=== PATIENT | female | born 1970 | race African-American/Black ===

== ENCOUNTER 2016-08-07 15:52 | Emergency (ER) | payer BC ==
[2016-08-07] MEDS ORDERED: NALOXONE HCL INJ/PF 0.4 MG/1 ML SDV ONE (16:08)
[2016-08-07] MEDS ORDERED: MIDAZOLAM 2 MG/2 ML INJ ONE (16:08)
[2016-08-07] MEDS ORDERED: FLUMAZENIL INJ 0.5 MG/5 ML VIAL IV ONE (16:09)
[2016-08-07] MEDS ORDERED: FENTANYL CITRATE INJ/PF 100 MCG/2 ML AMPUL ONE (16:09)
[2016-08-07] MEDS ORDERED: EPINEPHRINE INJ 1 MG/10 ML DISP.SYRIN ONE (16:09)
[2016-08-07] MEDS ORDERED: GLUCAGON,HUMAN RECOMB 1 MG INJ ONE (16:09)
--- NOTE | 2016-08-07 17:47 | ER Document Report ---
ED Foreign Body - General Chief Complaint: Foreign Body Stated Complaint: FOREIGN BODY IN THROAT Time seen by provider: 16:45 Mode of Arrival: Ambulatory Information source: Patient Notes: Patient states she is eating a sausage biscuit at around noon time when part of it was stuck in her throat. She came into the emergency room to have an EGD done by Dr. Hidalgo to remove the food. - HPI Location of foreign body: Other - Unable to swallow food due to a full fluid bolus in her throat Onset: Other - Around noon time Onset/Duration: Sudden, Persistent Quality of pain: No pain Severity: None Pain Level: Denies Associated symptoms: Other - Difficult to swallow Exacerbated by: Food Relieved by: Denies Similar symptoms previously: Yes Recently seen / treated by doctor: Yes - Related Data Allergies/Adverse Reactions: Penicillins Allergy (Severe, Verified 07/19/11 08:49) Past Medical History - General Information source: Patient - Social History Smoking Status: Never Smoker Cigarette use (# per day): No Chew tobacco use (# tins/day): No Smoking Education Provided: No Frequency of alcohol use: None Drug Abuse: None Occupation: [employer] Lives with: Family Family History: CAD, Hyperlipidemia, Hypertension, Malignancy, Other - CHF Patient has suicidal ideation: No Patient has homicidal ideation: No - Past Medical History Cardiac Medical History: Reports: None Pulmonary Medical History: Reports: None EENT Medical History: Reports: None Neurological Medical History: Reports: Hx Seizures - last one 1987 Endocrine Medical History: Reports: None Renal/ Medical History: Reports: None Malignancy Medical History: Reports: None GI Medical History: Reports: Hx Colonoscopy, Hx Endoscopy, Other - 68 oh strictures multiple fluid boluses Musculoskeltal Medical History: Reports None Skin Medical History: Reports None Psychiatric Medical History: Reports: None Traumatic Medical History: Reports: None Infectious Medical History: Reports: None Surgical Hx: Negative Past Surgical History: Denies: Hx Hysterectomy - Immunizations Hx Diphtheria, Pertussis, Tetanus Vaccination: No Review of Systems - Review of Systems Constitutional: No symptoms reported EENT: Difficulty swallowing Cardiovascular: No symptoms reported Respiratory: No symptoms reported Gastrointestinal: No symptoms reported Genitourinary: No symptoms reported Female Genitourinary: No symptoms reported Musculoskeletal: No symptoms reported Skin: No symptoms reported Hematologic/Lymphatic: No symptoms reported Neurological/Psychological: No symptoms reported Physical Exam - Vital signs Vitals: Temp Pulse Resp BP Pulse Ox 98.7 F 70 17 122/82 99 08/07/16 16:07 08/07/16 16:07 08/07/16 16:07 08/07/16 16:07 08/07/16 16:07 Interpretation: Normal - General General appearance: Appears well, Alert - HEENT Head: Normocephalic, Atraumatic Eyes: Normal Pupils: PERRL - Respiratory Respiratory status: No respiratory distress Chest status: Nontender Breath sounds: Normal Chest palpation: Normal - Cardiovascular Rhythm: Regular Heart sounds: Normal auscultation Murmur: No - Abdominal Inspection: Normal Distension: No distension Bowel sounds: Normal Tenderness: Nontender Organomegaly: No organomegaly - Back Back: Normal, Nontender - Extremities General upper extremity: Normal inspection, Nontender, Normal color, Normal ROM , Normal temperature General lower extremity: Normal inspection, Nontender, Normal color, Normal ROM , Normal temperature, Normal weight bearing. No: Jennie's sign - Neurological Neuro grossly intact: Yes Cognition: Normal Orientation: AAOx4 [place] Coma Scale Eye Opening: Spontaneous [place] Coma Scale Verbal: Oriented [place] Coma Scale Motor: Obeys Commands [place] Coma Scale Total: 15 Speech: Normal Motor strength normal: LUE, RUE, LLE, RLE Sensory: Normal - Psychological Associated symptoms: Normal affect, Normal mood - Skin Skin Temperature: Warm Skin Moisture: Dry Skin Color: Normal Course - Re-evaluation Re-evalutation: 08/07/16 18:[address] Hidalgo got to the bedside she had her IV in place she was on the monitor everything was ready to get the narcotics and sedatives to do the EGD and patient swallowed her full bolus. The EGD was not done. Gwen said the patient was to be sent home and call his office tomorrow to schedule a prominent to stretch her esophageal strictures again - Vital Signs Vital signs: Temp Pulse Resp BP Pulse Ox 98.7 F 74 16 132/95 H 99 08/07/16 16:07 08/07/16 16:45 08/07/16 17:22 08/07/16 17:23 08/07/16 17:16 Discharge - Discharge Clinical Impression: Food impaction of esophagus Qualifiers: Encounter type: initial encounter Qualified Code(s): T18.128A - Food in esophagus causing other injury, initial encounter Condition: Stable Disposition: HOME, SELF-CARE Additional Instructions: You were seen today for a food bolus and your esophagus that you were not able to swallow. He was set up for endoscopy by Dr. Hidalgo but was able to swallow the food bolus with Dr. hidalgo before she was sedated and endoscopy was done. Dr. Hidalgo states that you need to call him tomorrow to schedule your follow- up endoscopy to stretch your esophagus as you know it is too tight. You have been instructed on the risk of delayed in this procedure that included anything up to . Please call first thing in the morning and schedule this appointment. Forms: Return to Work Referrals: HEMA HIDALGO MD [ACTIVE STAFF] - Follow up tomorrow
[2016-08-07 18:08] VITALS: BP 132/95
== END 2016-08-07 18:09 | disposition home or self-care (01) ==
LOC: ER 15:52
DX: T18.128A Food in esophagus causing other injury, initial encounter (principal)
CPT/HCPCS: 99284; J2250; J3010; J0171; J1610; J2310; J3490

== ENCOUNTER → 2017-02-14 | Outpatient (CLI) | payer BC ==
--- NOTE | 2017-02-19 17:55 | WOMENS IMAGING REPORT ---
EXAM DESCRIPTION: BILAT SCREENING MAMMO W/CAD COMPLETED DATE/TIME: 02/14/2017 3:42 pm REASON FOR STUDY: SCREENING MAMMO Z12.31 ENCNTR SCREEN MAMMOGRAM FOR MALIGNANT NEOPLASM OF RAULITO COMPARISON: 2009 TECHNIQUE: Standard craniocaudal and mediolateral oblique views of each breast recorded using digita l acquisition. LIMITATIONS: None. FINDINGS: No masses, calcifications or architectural distortion. No areas of suspicion. Read with the assistance of CAD. .[facility] - R2 Cenova Version 1.3 .[facility] Imaging - R2 Cenova Version 1.3 .[facility] - R2 Cenova Version 2.4 .[facility] [place] R2 Cenova Version 2.4 .[facility] - R2 Hooker Up Version 9.2 IMPRESSION: NORMAL MAMMOGRAM. BIRADS 1. BREAST DENSITY: b. There are scattered areas of fibroglandular density. BIRAD: 1 NEGATIVE RECOMMENDATION: ROUTINE SCREENING Please consider bilateral screening tomosynthesis in January 2018 COMMENT: The patient has been notified of the results by letter per SA requirements. Additional no tification policies are in place for contacting patient with suspicious or incomplete findings. Quality ID #[id number]: The [employer] recommends an annual screening mammogram for women aged 40 years or over. This facility utilizes a reminder system to ensure that all patients receive reminder letters, and/or direct phone calls for appointments. This includes reminders for routine scr eening mammograms, diagnostic mammograms, or other Breast Imaging Interventions when appropriate. Th is patient will be placed in the appropriate reminder system. The [employer] ([employer]) has developed recommendations for screening MRI of the breast s in certain patient populations, to be used in conjunction with mammography. Breast MRI surveillanc e may be appropriate for women with more than 20% lifetime risk of developing breast cancer as deter mined by genetic testing, significant family history of the disease, or history of mantle radiation f or Hodgkins Disease. [employer] Practice Guidelines 2008. TECHNICAL DOCUMENTATION: FINDING NUMBER: (1) ASSESSMENT: (1) JOB ID: [id number] [employer]- All Rights Reserved
== END ==
LOC: WI 15:27
PROVIDERS: ATTEND Family Medicine
DX: Z12.31 Encounter for screening mammogram for malignant neoplasm of breast (principal)
CPT/HCPCS: 77067; G0202